=== PATIENT | female | born 1950 | race Hispanic/Latino ===

== ENCOUNTER 2018-10-19 05:44 | Day surgery (SDC) | payer MEDICARE, OTHER ==
[~2018-10-19] VITALS: Ht 162.6 cm; Wt 81.6 kg
[~2018-10-19 05:44] MED LIST: LISI-613 PO; METF-446 PO
[2018-10-19] MEDS ORDERED: SODIUM CHLORIDE 0.9% 1000ML 1,000 ML IV ONE (05:55)
[2018-10-19 06:49] VITALS: BP 149/66
[2018-10-19] MEDS ORDERED: LEVO25TA54 PO (07:09)
[2018-10-19] MEDS ORDERED: [UNRECOGNIZED DRUG - OTHER] PO (07:09)
[2018-10-19] MEDS ORDERED: ASPI-555 PO (07:09)
[2018-10-19] MEDS ORDERED: NPH,100V11 SQ ×2 (07:09)
[2018-10-19] MEDS ORDERED: MULT-1250 PO (07:09)
[2018-10-19] MEDS ORDERED: PROPOFOL 10 MG/ML 20ML VIAL IV ONE (07:33)
[2018-10-19 07:52] VITALS: BP 86/53
[2018-10-19 07:57] VITALS: BP 122/56
[2018-10-19 08:02] VITALS: BP 122/56
[2018-10-19 08:03] VITALS: BP 118/62
== END 2018-10-19 08:18 | disposition home or self-care (01) ==
LOC: ENDO 05:44 → DAH 05:44 → ENDO 08:18
PROVIDERS: ATTEND Internal Medicine
DX: K29.50 Unspecified chronic gastritis without bleeding (principal); K31.9 Disease of stomach and duodenum, unspecified; I10 Essential (primary) hypertension; D64.9 Anemia, unspecified; E07.9 Disorder of thyroid, unspecified; E11.9 Type 2 diabetes mellitus without complications; E03.9 Hypothyroidism, unspecified; Z68.30 Body mass index [BMI] 30.0-30.9, adult; Z79.84 Long term (current) use of oral hypoglycemic drugs
CPT/HCPCS: 43237; 43239; 82948 ×2; 88305; A4606; J2704; J7030; 43242